=== PATIENT | female | born 1990 | race Caucasian/White ===

== ENCOUNTER 2020-11-15 04:48 | Inpatient (IN) | payer BC ==
[2020-11-15] MEDS ORDERED: VITAFOL-OB+DHA1 EACH PO (05:37)
[2020-11-15] MEDS ORDERED: BASAGLAR K100 UNIT/1 SUB-Q (05:42)
[2020-11-15] MEDS ORDERED: CLARITIN10 M2 PO (05:42)
[2020-11-15] MEDS ORDERED: IRON (05:43)
--- NOTE | 2020-11-15 05:50 | NUR ---
RAPID SWAB COLLECTED
== END 2020-11-17 10:03 | disposition home or self-care (01) | DRG 806 ==
LOC: FBC 04:48
PROVIDERS: ADMIT Obstetrics & Gynecology; ATTEND Obstetrics & Gynecology
PROC: 10E0XZZ Delivery of Products of Conception, External Approach (ICD-10-PCS; principal; 2020-11-15)
PROC: 10907ZC Drainage of Amniotic Fluid, Therapeutic from Products of Conception, Via Natural or Artificial Opening (ICD-10-PCS; 2020-11-15)
PROC: 3E0234Z Introduction of Serum, Toxoid and Vaccine into Muscle, Percutaneous Approach (ICD-10-PCS; 2020-11-16)
DX: O24.424 Gestational diabetes mellitus in childbirth, insulin controlled (principal); O99.12 Other diseases of the blood and blood-forming organs and certain disorders involving the immune mechanism complicating childbirth; Z37.0 Single live birth; Z20.822 Contact with and (suspected) exposure to COVID-19; Z23 Encounter for immunization; Z3A.39 39 weeks gestation of pregnancy; O69.81X0 Labor and delivery complicated by cord around neck, without compression, not applicable or unspecified; Z88.0 Allergy status to penicillin; D69.6 Thrombocytopenia, unspecified
CPT/HCPCS: 36415; 85027; 90707; C9803; J2590; U0003